=== PATIENT | female | born 1975 | race Caucasian/White ===

== ENCOUNTER 2017-03-11 11:32 | Outpatient (CLI) | payer OTHER ==
[~2017-03-11 11:32] MED LIST: BUPIVACAINE HCL/PF 2.5 MG/ML 10ML VIAL IV ONE; Lidocaine 1% 5ml(IM or SUTURE)(PAIN CLINIC) ONE; TRIAMCINOLONE ACETONID 40MG/ML VIAL ONE
--- NOTE | 2017-03-12 14:48 | HISTORY AND PHYSICAL REPORT ---
Dear Dr. Ramsey: HISTORY OF PRESENT ILLNESS: I had the opportunity of seeing Miranda Holly today as an outpatient at [facility]. This is a very nice 41-year-old white female who comes in with chronic complaints of back and bilateral knee pain. She is currently under the treatment of Dr. Mantilla at [facility] and she brings in her prescription medications today. She is on hydrocodone, tramadol, and Lyrica. She says that each one of them have been effective at controlling both her back, neck, shoulder, and knee pain. She says that the knee pain has been chronic and that she has had knee joint injections by Dr. Kenney in the past which has helped. She denies instability. She denies maisha radiation into the lower extremities. She denies symptoms of neurogenic claudication. She says she has constant axial and lumbosacral back pain as well and she has had previous lumbar epidural injection at the [facility] which has also been beneficial in controlling her symptoms. She has not had either one of these in some time. She tells me that she was managed by Dr. Mantilla but he is leaving and that is the reason she has presented to me today. I did call over to [facility] and apparently, Dr. Mantilla is not leaving and so I am at a bit of a loss as to her presentation today. However, I did have a nice visit with Miranda today and we discussed her limitations with ambulation, the low back, and knee pain. PAST MEDICAL HISTORY: 1. History of vision problems. 2. Nose or sinus problems. 3. Hypertension. 4. Irregular fast heartbeats. 5. Bleeding tendency. 6. Bruising easily. 7. COPD. 8. Asthma. 9. Jaundice. 10. Kidney problems. 11. Depression. 12. Anxiety. 13. Frequent headaches. 14. Bipolar disorder. 15. PTSD. 16. Anemia. 17. Osteoarthritis. PAST SURGICAL HISTORY: 1. Tonsillectomy. 2. Adenoidectomy. 3. Appendectomy. 4. Gastric bypass in 2002. 5. Splenectomy. 6. Hernia repair x12. 7. Nerve removed in her left hand. 8. Uterine ablation. CURRENT DAILY MEDICATIONS: 1. Abilify 5 mg daily. 2. Lyrica 75 mg b.i.d. 3. Trazodone 50 mg at bedtime. 4. Lorazepam 0.5 mg daily. 5. Toprol 50 mg daily. 6. Paroxetine 40 mg daily. 7. Tramadol 50 mg b.i.d. 8. Atarax 25 mg 2 at bedtime. 9. Vitamin D2, 50,000 units weekly. 10. Lasix 40 mg daily. 11. Gladwin 5/325 mg t.i.d. 12. Lamictal 125 mg b.i.d. 13. Lipitor 40 mg daily. 14. B12 injection monthly. ALLERGIES: 1. Vancomycin causing kidney failure. 2. Adhesive causing skin lesions. SOCIAL HISTORY: She is a current 1-1/6-syhv-oqr-day smoker. She drinks alcohol socially approximately once or twice per year. Denies recreational drug use. She is . She has no children. 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 She is not currently employed. She is disabled due to chronic pain and psychiatric disorders. FAMILY HISTORY: Father with diabetes and pain problems related to arthritis. Mother with diabetes and pain problems related to arthritis. Siblings with diabetes and questionable stroke. REVIEW OF SYSTEMS: In the last month or so, she reports a weight loss, fever, chills, night sweats , sinus infection, chest pain, irregular fast heartbeats, swelling in her hands and feet, shortness of breath, cough or cold, unspecified infection, stomach pain or upset stomach, vomiting, constipation, diarrhea, feeling depressed, feeling anxious, and headaches. Pain is worsened with lying down, standing, bending, sitting, walking, twisting, getting up from a chair, changes in weather , cold, heat, stress, fatigue, touch, bright lights, gradually worsens as the day progresses, getting up in the morning, or in any position for too long. Nothing improves her pain. PHYSICAL EXAMINATION: General: This is an obese white female in no apparent distress. Vital Signs: BP: 127/67, P: 70, R: 20, oxygen saturation is 95% on room air. HEENT: Pupils are equal, round, and reactive to light and accommodation. Extraocular movements intact. No facial droop. Neck: There is full range of motion of the cervical spine. No evidence of adenopathy. Thyroid is nontender, not enlarged. Carotids are without bruits. Chest: Clear to auscultation bilaterally. Normal chest excursion. Heart: Regular rate and rhythm without murmur. Abdomen: Benign. Normoactive bowel sounds. Motor/sensory: Intact in the upper and lower extremities. Moves all extremities freely. Back: There is a positive assisted extension and extension rotation of the lumbar spine. Extremities: Strength is 5/5 and equal in the upper and lower extremities. Reflexes are 2+ and equal in the patellar tendon and Achilles tendon. Dorsiflexion and plantar flexion of the feet are intact. Negative straight leg raise. Negative femoral nerve stretch. There is a negative drawer sign to the knees. There is some swelling about the knees. ASSESSMENT: 1. Chronic lumbosacral back pain. No imaging available at this time. 2. Degenerative joint disease of the knees and osteoarthritis. 3. Polyarthropathy. 4. Obesity. 5. Depression. 6. Peripheral neuropathy. PLAN: At this point, I discussed both her medications and possible treatment options. I think palliative knee joint injections are indicated in this nice lady and I will provide them for her today. I have told her that I will increase her pregabalin medication to 250 mg twice a day, as this is effective for peripheral neuropathy and we will obtain imaging of the lumbar spine. I will not, however, provide prescriptions for hydrocodone, nor do I have any indication at this point for therapy with hydrocodone. I will give her a refill for tramadol. I would be glad to follow this patient up, but I also did inform her that she is a patient of Dr. Mantilla and she can only get controlled substances through his clinic. Dr. Ramsey, thank you very much for allowing me to take part in the care of this nice lady. I appreciate the opportunity to take part in the care of your patients. cc: Dr. Roxy GOYAL
--- NOTE | 2017-03-12 14:52 | KNEE INJECTION WITH FLUORO ---
PROCEDURE: Bilateral knee joint injection with fluoroscopy. DESCRIPTION OF PROCEDURE: The risks and benefits of the injection were discussed with the patient, including the risks of infection, bleeding, and nerve injury. Furthermore, I discussed the risk of steroid exposure causing hyperglycemia, hypertension, osteoporosis, or increased infectious risks. The patient understood these risks and agreed to proceed. Consent was obtained. The patient was placed in the supine position on the fluoroscopy table with the knees slightly flexed. The left knee was prepared. AP and oblique fluoroscopic viewing was used for visualizing the knee joint. A 23-gauge, 1.5 spinal needle was introduced into the joint space from an anteromedial approach under direct fluoroscopic guidance. It was verified that there was no aspiration of fluid or blood. Omnipaque 240 myelogram dye was injected and noted to course within the joint space. The medication was subsequently injected into the joint space. The stylette was replaced into the needle and the needle was withdrawn from the knee. The skin was cleaned. This exact same procedure was repeated on the contralateral knee. The patient tolerated the injection without complications. A band-aid was placed over the injection site (s). The patient was monitored for 20 minutes following the procedure. Vital signs remained stable throughout this period. ASSESSMENT: Degenerative Joint disease affecting the knee. PLAN: Bilateral knee joint injection with fluoroscopy. FOLLOW UP: Return to clinic if problems develop or worsen. cc: Dr. Roxy GOYAL
== END 2017-03-11 11:33 ==
LOC: OUT 11:32
PROVIDERS: ATTEND Anesthesiology Pain Medicine
DX: M17.0 Bilateral primary osteoarthritis of knee (principal)
CPT/HCPCS: J3301; J3490; Q9966; 20610; 77002; 99213

== ENCOUNTER 2017-04-15 09:35 | Outpatient (CLI) | payer OTHER ==
--- NOTE | 2017-04-17 10:11 | PAIN CLINIC PROGRESS NOTES ---
REASON FOR VISIT: Ms. Holly follows up with me today for her chronic back pain. MRI reveals multi -level spondylosis and an L5-S1 pars defect without severe spinal or neuroforaminal stenosis. She has chronic axial back pain, and I cautioned her regarding cigarette use as I think that the tobacco use coupled with morbid obesity is causing further degenerative problems in her spine. I also explained that the pars defect and the spondylolisthesis may require a lumbosacral fusion which we could potentially send her to the [facility] for an evaluation. PLAN: I talked to her about facet medial branch blocks as a diagnostic intervention. I talked to her about the possibilities of radiofrequency neurolysis for more of a long-term palliative treatment. At this point, she has a large abdominal abscess and an in situ drain, and I am not recommending any interventional treatment at this point. I have also told her that I would not recommend starting her on hydrocodone; and if that was her goal, then she should follow up with Dr. aMntilla in [place]. I will provide her a prescription for Butrans 10 mcg transdermal patch, as I do think she has underlying chronic axial back pain. She is in agreement today and we will provide her with a 10 mcg patch and 2 refills. cc: Dr. Roxy GOYAL
== END 2017-04-15 09:36 ==
LOC: OUT 09:35
PROVIDERS: ATTEND Anesthesiology Pain Medicine
DX: G89.29 Other chronic pain (principal); M54.89 Other dorsalgia; M43.17 Spondylolisthesis, lumbosacral region; E66.9 Obesity, unspecified; F17.210 Nicotine dependence, cigarettes, uncomplicated
CPT/HCPCS: 99213